=== PATIENT | male | born 1940 | race Hispanic/Latino ===

== ENCOUNTER 2018-04-23 14:01 | Emergency (ER) | payer MEDICARE ==
[~2018-04-23] VITALS: Ht 170.2 cm; Wt 93.4 kg
[~2018-04-23 14:01] MED LIST: ACETAMINOPHEN325 M1 PO; ALPRAZOLAM0.5 M1 PO; AMLODIPINE BESY10 MG PO; ASPIRIN81 MG PO; BENICAR20 MG PO; FUROSEMIDE40 MG PO; GLIPIZIDE5 MG PO; JANUVIA50 MG PO; LEXAPRO10 MG PO; LISINOPRIL10 MG PO; POTASSIUM CHLO20 ME1 PO; PRAVASTATIN SOD20 MG PO; TAMSULOSIN HCL0.4 MG PO; TRAMADOL-ACETAMI1 EA PO
[2018-04-23] MEDS ORDERED: DEXAMETHASONE SOD PHOS 10 MG/1 ML VIAL INJ ONE (15:45)
[2018-04-23] MEDS ORDERED: HYDROCODONE/APAP 5MG-325MG TAB PO ONE (15:45)
[2018-04-23] MEDS ORDERED: KETOROLAC TROMETHAMINE 10 MG TAB PO PRN (15:45)
--- NOTE | 2018-04-23 17:38 | Diagnostic Imaging Report ---
PROCEDURE:X-RAY RIGHT KNEE, THREE OR MORE VIEWS COMPARISON:None. INDICATIONS:pain and swelling in knee FINDINGS: The bones are well-mineralized. There are no fractures, subluxations, lytic or blastic lesions. There is no evidence of a joint effusion. Vascular calcifications. Moderate degenerative changes in the medial and lateral compartments and severe in the patellofemoral compartments with loose joint bodies. Small suprapatellar joint effusion. 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 Dictated by: Navi Scott M.D. on 04/23/2018 at 17:43 Electronically approved by: Navi Scott M.D. on 04/23/2018 at 17:43
== END 2018-04-23 18:04 | disposition home or self-care (01) ==
LOC: ER 14:01
DX: M25.561 Pain in right knee (principal); M17.11 Unilateral primary osteoarthritis, right knee; R26.2 Difficulty in walking, not elsewhere classified
CPT/HCPCS: 73562; 99283; J1100

== ENCOUNTER 2019-07-13 17:30 | Inpatient (IN) | payer MEDICARE ==
[~2019-07-13] VITALS: Ht 170.2 cm; Wt 91.6 kg
--- OUTSIDE RECORDS SUMMARY | 2019-07-13 17:35 | XMS REPORT ---
Author Author [facility] Address Unknown Phone Unavailable Care Team Providers Care Project Management Manager Name Role Phone Kenzie PAYNE Unavailable Unavailable Payers Payer Name Policy Type Policy Number Effective Date Expiration Date Problems This patient has no known problems. Allergies, Adverse Reactions, Alerts Allergy Name Allergy Type Status Severity Reaction(s) Onset Date Inactive Date Treating Clinician Comments No Known Allergies DA Active U 2018-08-06 00:00:00 Medications This patient has no known medications. Results Test Description Test Time Test Comments Text Results Atomic Results Result Comments KNEE RIGHT THREE VIEWS 2018-04-23 17:43:00 [place] [id number] Patient Name: JOURDAN ROBERTS MR #: [id number] : 1940 Age/Sex: 77/M Req #: [id number] Adm Physician: Ordered by: MO PAYNE MD Report #: [id number] Location: ER Room/Bed: Procedure: [id number] DX/KNEE RIGHT THREE VIEWS Exam Date: 04/23/18 Exam Time: 1553 REPORT STATUS: Signed PROCEDURE: X-RAY RIGHT KNEE, THREE OR MORE VIEWS COMPARISON: None. INDICATIONS: pain and swelling in knee FINDINGS: The bones are well-mineralized. There are no fractures, subluxations, lytic or blastic lesions. There is no evidence of a joint effusion. Vascular calcifications. Moderate degenerative changes in the medial and lateral compartments and severe in the patellofemoral compartments with loose joint bodies. Small suprapatellar joint effusion. 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 Dictated by: Joelle López M.D. on 04/23/2018 at 17:43 Electronically approved by: Joelle López M.D. on 04/23/2018 at 17:43 Dictated By: JOELLE LÓPEZ MD 42 Transcribed By: JEROMY on 04/23/181742 COPY TO: MO PAYNE MD
[2019-07-13] MEDS ORDERED: CEFTRIAXONE SOD 1 GM/NS 50 ML 50 ML IV STA (17:55)
[2019-07-13] MEDS ORDERED: MORPHINE SULFATE 2 MG/ML SYR 1ML IV PRN (18:00)
[2019-07-13] MEDS: ONDANSETRON HCL INJ 2MG/ML 2ML 2 MG/ML VIAL IV PRN (19:13)
[2019-07-13] MEDS: MORPHINE SULFATE INJ 4 MG/ML INJ 1ML IV PRN (19:14)
[2019-07-13] MEDS: SODIUM CHLORIDE 0.9% 1000ML 1,000 ML IV SCH (19:20)
[2019-07-13 19:40] LABS: BASOPHILS % 0.3 % (0.0-1.0); EOSINOPHILS % 0.2 % (0.0-6.0); HEMATOCRIT 41.1 % (38.2-49.6); HEMOGLOBIN 13.3 g/dL (14.0-18.0); LYMPHOCYTES # (AUTO) 1.5 (1.0-3.2); LYMPHOCYTES % 12.3 % (18.0-39.1); MEAN CORPUSCULAR HEMOGLOBIN 28.9 pg (28-32); MEAN CORPUSCULAR HGB CONC 32.4 g/dL (31-35); MEAN CORPUSCULAR VOLUME 89.2 fL (81-99); MONOCYTES # (AUTO) 1.1 (0.2-0.8); MONOCYTES % 8.5 % (4.4-11.3); NEUTROPHILS # (AUTO) 9.8 (2.1-6.9); NEUTROPHILS % 78.1 % (38.7-80.0); PLATELET COUNT 264 x10e3/uL (140-360); RED BLOOD COUNT 4.61 x10e6/uL (4.3-5.7); RED CELL DISTRIBUTION WIDTH 14.9 % (11.7-14.4)
[2019-07-13 19:51] LABS: ALBUMIN 3.3 g/dL (3.5-5.0); ALBUMIN/GLOBULIN RATIO 0.8 (0.8-2.0); ANION GAP 15.8 mmol/L (8-16); CALCIUM 9.6 mg/dL (8.4-10.2); CREATININE, SERUM 1.28 mg/dL (0.72-1.25); POTASSIUM 4.8 mmol/L (3.5-5.1)
[2019-07-13 21:00] VITALS: BP 107/67
[2019-07-13 21:30] VITALS: BP 107/67
--- NOTE | 2019-07-13 21:30 | NUR ---
PATIENT RECEIVED FROM ER. PATIENT IS AAOX3. RESP EVEN AND UNLABORED. PERIRECTAL ABSCESS BLEEDING NOTED. DIAPER GIVEN. PATIENT DENIES OF ANY PAIN AT THIS TIME. ORIENTED TO ROOM. CALL LIGHT WITHIN REACH. INSTRUCT PATIENT TO CALL FOR SENIOR PRODUCTION MANAGER. BED LOW/LOCKED. CONTINUE TO MONITOR CLOSELY
[2019-07-13 22:00] VITALS: BP 101/59
[2019-07-14] VITALS (8 sets, daily range): BP systolic 92–118; BP diastolic 55–81
[2019-07-14] MEDS ORDERED: DEXTROSE 50% SYRINGE 50 ML IV PRN (00:15)
[2019-07-14] MEDS: PIPER-TAZ 3.375 GM 50 ML IV SCH ×4 (00:50→18:13)
[2019-07-14] MEDS: SODIUM CHLORIDE 0.9% 1000ML 1,000 ML IV SCH ×3 (01:50→23:03)
[2019-07-14] MEDS: METRONIDAZOLE 750MG/NS 150ML 150 ML IV SCH ×4 (01:50→19:18)
[2019-07-14] MEDS ORDERED: INFLUENZA VIRUS VAC SPLIT INJ 0.5 ML SYR IM SCH (01:55)
[2019-07-14] MEDS: INSULIN LISPRO 100 UNIT/1 ML 3ML VIAL SQ SCH ×4 (07:30→21:00)
[2019-07-14] MEDS ORDERED: HYDROGEN PEROXIDE 120 ML BTL ONE (08:33)
[2019-07-14] MEDS ORDERED: LIDOCAINE HCL 2% 30 ML TUBE ONE (08:33)
[2019-07-14] MEDS: AMLODIPINE BESYLATE 10 MG TAB PO SCH (09:00)
[2019-07-14] MEDS ORDERED: ACETAMINOPHEN 1000 MG/100 ML 100 ML IV ONE (09:29)
[2019-07-14] MEDS ORDERED: FENTANYL CITRATE/PF 100MCG/2 ML INJ ONE ×2 (10:13→18:50)
[2019-07-14] MEDS ORDERED: ONDANSETRON HCL INJ 2MG/ML 2ML 2 MG/ML VIAL IV PRN (10:15)
[2019-07-14] MEDS ORDERED: HYDROCODONE/APAP 7.5MG-325MG 1 EA TAB PO PRN (10:15)
--- NOTE | 2019-07-14 10:41 | Operative Report ---
DATE OF PROCEDURE: 07/13/2019 SURGEON: Harjinder Conde MD PREOPERATIVE DIAGNOSES: Perirectal abscess, multitude of medical problems. POSTOPERATIVE DIAGNOSES: Perirectal abscess, multitude of medical problems. PROCEDURE PERFORMED: Incision and drainage of perirectal abscess. ANESTHESIA: General. ESTIMATED BLOOD LOSS: Minimal. DRAINS: None. COMPLICATIONS: None. INDICATION AND FINDINGS: The patient is a 79-year-old male with plethora of medical problems, on Pradaxa, who was admitted to the hospital with a perirectal abscess. The patient gave a history of having developed a bulge and pain in the perirectal area while in [place] 15 days ago and decided not to seek medical attention there despite of his multitude of medical problems that he waited two weeks to come to the [place] for further treatment. Intraoperative findings were partially drained perirectal abscess located in the lithotomy position at the 9 o'clock position. The abscess itself had already rupture, but there was still some remaining pus. DESCRIPTION OF PROCEDURE: With the patient lying on the operative table in the supine position after administration of general anesthesia, he was prepped and draped and placed in the lithotomy position for rectal exam and incision and drainage of perirectal abscess. Rectal examination was performed, which revealed no palpable masses insofar as it could be done under the circumstances. The perirectal abscess was already ruptured and draining to the outside and then, we irrigated that cavity with peroxide and saline and decided to pack the cavity through a 1.5 cm skin defect that had been made by the tissue necrosis of the abscess. Aerobic and anaerobic were taken and dressing was applied. The patient tolerated the procedure well and taken to recovery room in stable condition. MD JOE Evans/LATISHAL /[id number]
[2019-07-14] MEDS: ONDANSETRON HCL INJ 2MG/ML 2ML 2 MG/ML VIAL IV PRN (10:52)
[2019-07-14] MEDS: MORPHINE SULFATE INJ 4 MG/ML INJ 1ML IV PRN (10:52)
[2019-07-14] MEDS: ESCITALOPRAM OXALATE 10 MG TAB PO SCH (10:59)
--- NOTE | 2019-07-14 15:20 | NUR ---
Visit made by the Spiritual Care Department Pastoral Visitor, Mita Todd. PV provided pastoral presence, prayer, hospitality, and supportive listening. Pastoral Visitor informed pt/family of the scope of [employer] and availability. OSITO SIMMS [employer] Spiritual Care Department O: [phone] Pager: [phone] ([phone] number calling from)
[2019-07-14] MEDS ORDERED: KETOROLAC TROMETHAMINE 30 MG/ML VIAL ONE (18:32)
[2019-07-14] MEDS ORDERED: SEVOFLURANE INHAL SOLN 250 ML PEN BTL ONE (18:32)
[2019-07-14] MEDS ORDERED: ONDANSETRON HCL INJ 2MG/ML 2ML 2 MG/ML VIAL ONE (18:32)
[2019-07-14] MEDS ORDERED: LIDOCAINE HCL 2% LOCAL INJ 5 ML SDV VIAL INJ ONE (18:32)
[2019-07-14] MEDS ORDERED: ROCURONIUM BROMIDE 10 MG/ML 5ML VIAL ONE (18:32)
[2019-07-14] MEDS ORDERED: PROPOFOL IV EMULSION 10 MG/ML 20 ML VIAL ONE (18:32)
[2019-07-14] MEDS ORDERED: DEXAMETHASONE SOD PHOS INJ 4 MG/ML VIAL ONE (18:32)
--- NOTE | 2019-07-14 19:18 | NUR ---
Patient received lying in bed. AAO x 3. Family at bedside. Patient had no complaints of pain. Respirations even and non-labored. Telemetry records rhythm as V-paced with a HR of 67. IVF infusing at 75 cc/hr. Patient instructed to call for assistance when needed. Call light within reach.
[2019-07-15] VITALS (9 sets, daily range): BP systolic 100–129; BP diastolic 60–76
[2019-07-15] MEDS: PIPER-TAZ 3.375 GM 50 ML IV SCH ×5 (00:40→23:25)
[2019-07-15] MEDS: METRONIDAZOLE 750MG/NS 150ML 150 ML IV SCH ×4 (02:30→23:29)
--- NOTE | 2019-07-15 04:15 | NUR ---
Dressing to perirectal region changed. Moderate sanguineous drainage noted. Packing intact. ABD pad and 4x 4 gauze applied to perirectal region. Patient tolerated well.
[2019-07-15 05:00] LABS: BASOPHILS % 0.6 % (0.0-1.0); EOSINOPHILS # (AUTO) 0.2 (0.0-0.4); EOSINOPHILS % 2.8 % (0.0-6.0); HEMATOCRIT 38.9 % (38.2-49.6); HEMOGLOBIN 12.3 g/dL (14.0-18.0); LYMPHOCYTES # (AUTO) 1.3 (1.0-3.2); LYMPHOCYTES % 18.4 % (18.0-39.1); MEAN CORPUSCULAR HEMOGLOBIN 28.8 pg (28-32); MEAN CORPUSCULAR HGB CONC 31.6 g/dL (31-35); MEAN CORPUSCULAR VOLUME 91.1 fL (81-99); MONOCYTES # (AUTO) 0.5 (0.2-0.8); MONOCYTES % 7.5 % (4.4-11.3); NEUTROPHILS # (AUTO) 4.8 (2.1-6.9); NEUTROPHILS % 70.6 % (38.7-80.0); PLATELET COUNT 240 x10e3/uL (140-360); RED BLOOD COUNT 4.27 x10e6/uL (4.3-5.7); RED CELL DISTRIBUTION WIDTH 14.8 % (11.7-14.4)
[2019-07-15 05:18] LABS: ANION GAP 11.5 mmol/L (8-16); BLOOD UREA NITROGEN 21 mg/dL (7-26); BUN/CREATININE RATIO 19 (6-25); CALCIUM 8.6 mg/dL (8.4-10.2); CARBON DIOXIDE 26 mmol/L (22-29); CHLORIDE 99 mmol/L (98-107); CREATININE, SERUM 1.12 mg/dL (0.72-1.25); EST GLOMERULAR FILTRATION RATE > 60 ML/MIN (60-); GLUCOSE 85 mg/dL (74-118); POTASSIUM 4.5 mmol/L (3.5-5.1); SODIUM 132 mmol/L (136-145)
--- NOTE | 2019-07-15 07:00 | NUR ---
Shift report given to oncoming nurse.
--- NOTE | 2019-07-15 07:00 | NUR ---
BEDSIDE SHIFT REPORT RECEIVED FROM THE CALL CENTER ASSISTANT RN. EDUCATED PT ABOUT FALL PRECAUTIONS. BED IS LOW AND LOCKED. CALL LIGHT WITH IN EASY REACH. INFORMED PT TO CALL FOR ANY NEEDS. PT VERBALIZED UNDERSTANDING. PT DENIES NEEDS AT THIS TIME.
[2019-07-15] MEDS: INSULIN LISPRO 100 UNIT/1 ML 3ML VIAL SQ SCH ×4 (07:30→20:48)
[2019-07-15] MEDS: ESCITALOPRAM OXALATE 10 MG TAB PO SCH (08:10)
[2019-07-15] MEDS: AMLODIPINE BESYLATE 10 MG TAB PO SCH (08:10)
--- NOTE | 2019-07-15 09:07 | NUR ---
LATE ENTRY 07/14/2019 WOUNDCARE CONSULT FOR 79 YO MALE POST I&D VIET RECTAL ABCESS PER DR OGLESBY PATIENT IN ROOM FAMILY AT BED SIDE REPORTS NO INCREASED PAIN OR DISCOMFORT AT THIS TIME POST SURGICAL DRESSING INTACT AND NO BREAKTHROUGH BLEEDING NOTED REBECA DRESSING HELD IN PLACE WITH MESH UNDERGARMENT POST SURGICAL WOUND CARE ORDERS PER DR OGLESBY PLEASE RECONSULT WITH WOUNDCARE IF ANY FURTHER ASSISTANCE NEEDED Addendum: 07/15/19 at 0918 by Cordell Newberry RN Amended: Links added.
[2019-07-15] MEDS ORDERED: ONDANSETRON HCL 4 MG ORAL DISINTEGRATING TAB PO PRN ×2 (11:30)
[2019-07-15] MEDS: SENNOSIDES 8.6 MG TAB PO SCH (17:23)
--- NOTE | 2019-07-15 18:25 | History and Physical ---
TURNAROUND PLANNER: Harjinder Conde MD. CHIEF COMPLAINT: Perirectal abscess. HISTORY OF PRESENT ILLNESS: The patient is a 79-year-old male, who came into the hospital with perirectal abscess. The patient is status post perirectal rectal abscess incision and drainage. The wound cultures still pending. The patient is otherwise stable at this time. No chest pain. No shortness of breath. PAST MEDICAL HISTORY: Including hypertension, diabetes type 2, dyslipidemia, anxiety disorder. PAST SURGICAL HISTORY: Status post perirectal abscess incision and drainage. SOCIAL HISTORY: The patient does not smoke or use alcohol. No regular drugs. ALLERGIES: NO KNOWN ALLERGIES. HOME MEDICATIONS: List is reviewed. REVIEW OF SYSTEMS: Status post perirectal abscess repair. PHYSICAL EXAMINATION: VITAL SIGNS: Temperature is 98, blood pressure 120/62, pulse rate 80, and respirations 18. GENERAL: The patient is not in acute distress. HEENT: Normocephalic, atraumatic. Anicteric. NECK: Supple grossly. PULMONARY: Diminished breath sounds without any wheezing or rales. CARDIOVASCULAR: S1, S2. Regular rate and rhythm. ABDOMEN: Soft, obese. EXTREMITIES: No cyanosis or edema. NEUROLOGIC: No focal deficit. RECTAL: Perirectal abscess, status post incision and drainage. The iodoform packing is still in place. LABORATORY DATA: Sodium is 132, potassium 4.5, chloride 99, bicarb 26, BUN 21, creatinine 1.1, and glucose 85. WBC 6.8, hemoglobin 12.3, hematocrit 38.9, and platelets is 240. LFTs normal. IMPRESSION: Perirectal abscess, status post incision and drainage. PLAN: Continue with antibiotics. We will monitor the patient closely. Insulin sliding scale coverage. Home medication resumed. Monitor blood pressure. MD VINICIO Harrison/MODL /[id number]
--- NOTE | 2019-07-15 19:00 | NUR ---
BEDSIDE SHIFT REPORT GIVEN TO THE CANDY SEPARATOR ENROBING RN. PT DENIED FURTHER NEEDS.
[2019-07-16] VITALS (7 sets, daily range): BP systolic 100–155; BP diastolic 57–86
[2019-07-16] MEDS: PIPER-TAZ 3.375 GM 50 ML IV SCH ×4 (05:08→23:44)
[2019-07-16 06:25] LABS: BASOPHILS % 0.5 % (0.0-1.0); EOSINOPHILS # (AUTO) 0.2 (0.0-0.4); EOSINOPHILS % 3.1 % (0.0-6.0); HEMATOCRIT 38.4 % (38.2-49.6); HEMOGLOBIN 12.3 g/dL (14.0-18.0); LYMPHOCYTES # (AUTO) 1.3 (1.0-3.2); LYMPHOCYTES % 17.6 % (18.0-39.1); MEAN CORPUSCULAR HEMOGLOBIN 28.7 pg (28-32); MEAN CORPUSCULAR VOLUME 89.5 fL (81-99); MONOCYTES # (AUTO) 0.7 (0.2-0.8); MONOCYTES % 9.1 % (4.4-11.3); NEUTROPHILS # (AUTO) 5.2 (2.1-6.9); NEUTROPHILS % 69.2 % (38.7-80.0); PLATELET COUNT 267 x10e3/uL (140-360); RED BLOOD COUNT 4.29 x10e6/uL (4.3-5.7); RED CELL DISTRIBUTION WIDTH 14.6 % (11.7-14.4)
[2019-07-16 06:35] LABS: ANION GAP 10.9 mmol/L (8-16); BLOOD UREA NITROGEN 15 mg/dL (7-26); BUN/CREATININE RATIO 14 (6-25); CARBON DIOXIDE 29 mmol/L (22-29); CHLORIDE 100 mmol/L (98-107); CREATININE, SERUM 1.06 mg/dL (0.72-1.25); EST GLOMERULAR FILTRATION RATE > 60 ML/MIN (60-); GLUCOSE 103 mg/dL (74-118); POTASSIUM 4.9 mmol/L (3.5-5.1); SODIUM 135 mmol/L (136-145)
--- NOTE | 2019-07-16 07:00 | NUR ---
BEDSIDE SHIFT REPORT RECEIVED FROM THE UNIFORM DESIGNER RN. PT IS AAOX4. EDUCATED PT ABOUT FALL PRECAUTIONS. PT VERBALIZED UNDERSTANDING. CALL LIGHT WITH IN EASY REACH. BED IS LOW AND LOCKED. SIDE RAILS X2. PT DENIES NEEDS AT THIS TIME.
[2019-07-16] MEDS: INSULIN LISPRO 100 UNIT/1 ML 3ML VIAL SQ SCH ×4 (07:30→21:00)
--- NOTE | 2019-07-16 08:30 | NUR ---
JAD TIRADO WOUND DRESSING REMOVED AND SITZ BATH GIVEN PER THE ORDER BY DR. Kenzie OGLESBY
[2019-07-16] MEDS: METRONIDAZOLE 750MG/NS 150ML 150 ML IV SCH (09:13)
[2019-07-16] MEDS: SENNOSIDES 8.6 MG TAB PO SCH ×2 (09:13→16:23)
[2019-07-16] MEDS: ALPRAZOLAM 0.5 MG TAB PO SCH (09:14)
[2019-07-16] MEDS: TAMSULOSIN HCL 0.4 MG CAP PO SCH (09:15)
[2019-07-16] MEDS: SITAGLIPTIN 100 MG TAB PO SCH (09:16)
[2019-07-16] MEDS: AMLODIPINE BESYLATE 10 MG TAB PO SCH (09:16)
[2019-07-16] MEDS: PRAVASTATIN 20 MG TAB PO SCH (09:17)
[2019-07-16] MEDS: GLIPIZIDE 5 MG TAB PO SCH (09:17)
[2019-07-16] MEDS: ESCITALOPRAM OXALATE 10 MG TAB PO SCH (09:17)
[2019-07-16] MEDS: LISINOPRIL 10 MG TAB PO SCH (09:17)
--- NOTE | 2019-07-16 10:00 | NUR ---
DR. OGLESBY AT BEDSIDE. VIET RECTAL ABSCESS INSIDE WOUND PACKING REMOVED. PT TOLERATED WELL. DENIES NEEDS AT THIS TIME.
[2019-07-16] MEDS ORDERED: FUROSEMIDE INJ 10 MG/ML 4 ML VIAL IV ONE (10:30)
--- NOTE | 2019-07-16 14:00 | NUR ---
RAC 18 G IV REMOVED. TIP INTACT. DRESSING APPLIED. PT DENIED FURTHER NEEDS. R WRIST 24 G FROM 07/16/[address]
[2019-07-16] MEDS: POTASSIUM CHLORIDE 20 MEQ TAB CR PO SCH (16:23)
[2019-07-16] MEDS ORDERED: ENOXAPARIN SOD INJ 40 MG/0.4 ML SYR SC SCH (17:00)
--- NOTE | 2019-07-16 19:00 | NUR ---
BEDSIDE SHIFT REPORT GIVEN TO THE PHARMACEUTICAL SPECIALTY REPRESENTATIVE RN. PT DENIED FURTHER NEEDS.
[2019-07-17 00:39] VITALS: BP 108/72
[2019-07-17 05:06] VITALS: BP 129/67
[2019-07-17] MEDS: PIPER-TAZ 3.375 GM 50 ML IV SCH (05:44)
[2019-07-17] MEDS: INSULIN LISPRO 100 UNIT/1 ML 3ML VIAL SQ SCH ×2 (07:30→11:50)
[2019-07-17 07:37] VITALS: BP 128/61
[2019-07-17 07:45] VITALS: BP 128/61
[2019-07-17] MEDS: TAMSULOSIN HCL 0.4 MG CAP PO SCH (08:06)
[2019-07-17] MEDS: GLIPIZIDE 5 MG TAB PO SCH (08:06)
[2019-07-17] MEDS: PRAVASTATIN 20 MG TAB PO SCH (08:07)
[2019-07-17] MEDS: AMLODIPINE BESYLATE 10 MG TAB PO SCH (08:07)
[2019-07-17] MEDS: ESCITALOPRAM OXALATE 10 MG TAB PO SCH (08:07)
[2019-07-17] MEDS: ALPRAZOLAM 0.5 MG TAB PO SCH (08:08)
[2019-07-17] MEDS: SENNOSIDES 8.6 MG TAB PO SCH (08:08)
[2019-07-17] MEDS: SITAGLIPTIN 100 MG TAB PO SCH (08:10)
[2019-07-17] MEDS: POTASSIUM CHLORIDE 20 MEQ TAB CR PO SCH (08:10)
[2019-07-17] MEDS: LISINOPRIL 10 MG TAB PO SCH (08:10)
[2019-07-17] MEDS ORDERED: FUROSEMIDE 40 MG TAB PO SCH (09:00)
[2019-07-17] MEDS ORDERED: ASPIRIN 81 MG CHEW TAB PO SCH (09:00)
[2019-07-17] MEDS ORDERED: TYLENOL WITH C1 EACH PO (10:14)
[2019-07-17] MEDS ORDERED: AUGMENTIN 500-1 EACH PO (10:47)
--- NOTE | 2019-07-17 11:00 | NUR ---
IMM letter delivered and reminded pt of Medicare Rights. Pt verbalized understanding. Signed copy placed in chart. Copy to pt.
--- NOTE | 2019-07-17 12:55 | NUR ---
right wrist IV discontinued. No signs of infiltration. 2x2 gauze and tape placed. Taken via wheelchair by PCT to personal car. AAOX4 to time, person,place, situation. Respirations even and unlabored. Discharge instructions, rx, and all personal belongings taken with patient.
--- NOTE | 2019-07-20 07:58 | Discharge Summary ---
TALENT DEVELOPMENT MANAGER: Harjinder Conde MD. FINAL DIAGNOSES: 1. Perirectal abscess with Streptococcus. 2. Status post incision and drainage of the perirectal abscess. SUMMARY: A 79-year-old male came in with perirectal abscess. The patient had incision and drainage and a IodoFoam was placed. The IodoFoam was removed. The patient is stable. He is comfortable. He had a shower today. The area looked clean. He will go home with Augmentin and pain medication by Dr. Harjinder Conde. For his other medication for his blood pressure and potassium, I went ahead and discontinued the Benicar and potassium, since his potassium was elevated. He is on lisinopril 10 mg daily and is on Lasix 40 mg daily. The patient does have sign of overt potassium replacement. The patient is otherwise stable. He will follow up with Dr. Conde as an outpatient. The patient is stable and discharged home today. MD VINICIO Harrison/LLOYD /[id number]
== END 2019-07-17 12:52 | disposition home or self-care (01) | DRG 345 ==
LOC: ER 17:30 → ERHOLD 17:55 → MED/SURG2 22:14 → OBSVTOIN 07-14 08:40
PROVIDERS: ADMIT Internal Medicine; ATTEND Internal Medicine
PROC: 0D9P0ZZ Drainage of Rectum, Open Approach (ICD-10-PCS; principal; 2019-07-13)
DX: K61.1 Rectal abscess (principal); E87.1 Hypo-osmolality and hyponatremia; B95.5 Unspecified streptococcus as the cause of diseases classified elsewhere; D64.9 Anemia, unspecified
CPT/HCPCS: 36415; 80048; 80053; 82948; 85025; 87071; 87075; 87205; 93005; 96361; 99284; G0378; J0696; J1100; J1650; J1885; J1940; J2001; J2270; J2405; J2543; J3010; J7030